=== PATIENT | female | born 1965 | race Asian ===

== ENCOUNTER 2020-09-28 14:11 | Outpatient (REF) | payer OTHER, SELFPAY ==
[2020-09-28 14:35] LABS: Hematocrit 42.8 % (37-47); Hemoglobin 14.6 g/dl (12.0-16.0); Mean Corpuscular HGB Conc 34.1 g/dl (31.0-35.0); Mean Corpuscular Hemoglobin 27.8 pg (27.0-33.0); Mean Corpuscular Volume 81.4 fL (80-98); Mean Platelet Volume 10.8 fL (9.4-12.3); Platelet Count 284 X10*3/uL (160-400); Red Blood Count 5.26 X10*6/uL (4.20-5.50); Red Cell Distribution Width 13.1 % (11.0-16.0); White Blood Count 10.9 X10*3/uL (4.8-10.8)
[2020-09-28 15:14] LABS: Estimated Average Glucose 223 mg/dL; Hemoglobin A1c % 9.4 %
[2020-09-28 15:18] LABS: Alanine Aminotransferase 18 U/L (0-31); Alkaline Phosphatase 135 U/L (39-117); Anion Gap 12 (12-20); Aspartate Amino Transferase 13 U/L (5-31); Bilirubin Total 0.4 mg/dL (0.0-1.0); Blood Urea Nitrogen 12 mg/dL (9-16); C Reactive Protein 0.56 mg/dL (< or = 0.50); Calcium 9.3 mg/dL (8.4-10.2); Carbon Dioxide 30 mmol/L (22-29); Chloride 100 mmol/L (96-108); Estimated Glomerular Filt Rate > 60; Glucose Random 240 mg/dL (60-115); Potassium 4.3 mmol/L (3.3-5.1); Sodium 138 mmol/L (135-145); Total Protein 7.1 g/dL (6.5-8.0)
[2020-09-28 15:39] LABS: Lipase 149 U/L (8-78)
== END 2020-09-28 14:12 | disposition home or self-care (01) ==
LOC: HO.LAB 14:11
PROVIDERS: PCP Family Medicine; Visit Provider Family Medicine
DX: E11.9 Type 2 diabetes mellitus without complications (principal); R10.12 Left upper quadrant pain
CPT/HCPCS: 36415; 80053; 83036; 83690; 85027; 86140

== ENCOUNTER 2020-09-29 15:23 | Outpatient (REF) | payer OTHER, SELFPAY ==
--- NOTE | ~2020-09-29 | XR_ITS ---
EXAMINATION: XR THORACOLUMBAR SPINE CLINICAL INFORMATION: Abdominal pain COMPARISON: Dorsal spine series August 2018 TECHNIQUE: 3 views of the dorsal spine FINDINGS: The vertebral alignment is normal. No intrinsic bony abnormality. The disc heights and neural foramina are well maintained. The endplates and posterior elements are normal. No fracture or subluxation. The surrounding prevertebral soft tissues are unremarkable. XR/XR thoracic spine 2V IMPRESSION: Normal exam. No change..
[2020-09-29 21:05] LABS: Amylase 31 U/L (28-100); Lactate Dehydrogenase 158 U/L (122-220)
== END 2020-09-29 15:24 | disposition home or self-care (01) ==
LOC: HO.XRAY 15:23
PROVIDERS: PCP Family Medicine; Visit Provider Nurse Practitioner
DX: R10.9 Unspecified abdominal pain (principal); M54.6 Pain in thoracic spine; R74.8 Abnormal levels of other serum enzymes
CPT/HCPCS: 36415; 72070; 82150; 83615

== ENCOUNTER 2020-10-14 11:55 | Outpatient (REF) | payer OTHER, SELFPAY ==
--- NOTE | ~2020-10-14 | CT_ITS ---
EXAMINATION: CT ABDOMEN AND PELVIS WITHOUT AND WITH CONTRAST CLINICAL INFORMATION: Abdominal pain COMPARISON: Previous abdominal ultrasound June [address] of the abdomen December 2007 TECHNIQUE: Multidetector volumetric imaging was performed of the abdomen and pelvis before and after the IV administration of 85 mL of Omnipaque 300 intravenous contrast. Sagittal and coronal reformatted images were obtained on the technologist's workstation. This CT examination was performed using dose optimization techniques as appropriate, variously including the following: *Automated exposure control *Adjustment of mA and/or kV according to patient size (this includes techniques or standardized protocols for targeted exams where dose is matched to indication/reason for exam; i.e. extremities or head) *Use of iterative reconstruction technique DLP: 2126 mGy-cm FINDINGS: LUNG BASES: There is a 2 mm peripheral or subpleural left lower lobe nodule axial image 6 series 4 that is stable. There is a 2 mm left lower lobe nodule axial image 17 series 4 that is stable. LIVER, GALLBLADDER, AND BILIARY TREE: The liver is low in attenuation suggestive of fatty infiltration. No focal liver lesion is seen. The gallbladder is been removed. There is no biliary duct dilatation. PANCREAS: Unremarkable SPLEEN: Unremarkable ADRENAL GLANDS: Unremarkable KIDNEYS AND URETERS: There is a 5 mm fatty lesion in the upper pole of the right kidney that is stable and probably represents a benign angiomyolipoma. The kidneys are otherwise unremarkable. BLADDER: Unremarkable GASTROINTESTINAL TRACT: There is mild diverticulosis of the colon. The small and large bowel are otherwise unremarkable. The appendix is unremarkable. The stomach is unremarkable. ABDOMINAL WALL: There is a large umbilical hernia containing fat. There is question of postsurgical change from right upper abdominal ventral hernia repair. LYMPH NODES: Normal VASCULAR: Unremarkable PELVIC VISCERA: Unremarkable OSSEOUS STRUCTURES: There is a 1 cm anterior subluxation of L4 with respect L5. This is new or increased from December 2017 exam. There is L4-L5 degenerative disc disease. There is facet arthritis at L4-L5. Bony structures are otherwise unremarkable. CT/CT abdomen pelvis wo/w con IMPRESSION: Fatty liver. 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 Mild diverticulosis of the colon. No evidence of diverticulitis. Large umbilical hernia containing fat. New 1 cm anterior subluxation of L4 with respect L5. There is also degenerative disc disease and facet arthritis at L4-L5.
[2020-10-14] MEDS: Barium Sulfate Oral (Berry) 450 ML ORAL.SUSP 900 ML PO (15:35)
== END 2020-10-14 11:56 | disposition home or self-care (01) ==
LOC: HO.CT 11:55
PROVIDERS: Visit Provider Nurse Practitioner
DX: R10.9 Unspecified abdominal pain (principal); M54.6 Pain in thoracic spine; R74.8 Abnormal levels of other serum enzymes
CPT/HCPCS: 74178; Q9967

== ENCOUNTER → 2020-10-21 08:43 | Outpatient (BNVA) | payer OTHER, SELFPAY | PROVIDERS: PCP Family Medicine; Visit Provider Nurse Practitioner ==

== ENCOUNTER → 2020-11-17 14:27 | Outpatient (BNVA) | payer OTHER, SELFPAY | PROVIDERS: PCP Family Medicine; Visit Provider Internal Medicine Cardiovascular Disease | DX: R07.89 Other chest pain (principal); I10 Essential (primary) hypertension | CPT/HCPCS: 93005 ==

== ENCOUNTER → 2020-11-21 07:57 | Outpatient (REF) | payer OTHER, SELFPAY ==
--- NOTE | 2020-11-21 08:01 | CA_ITS ---
Acquisition Time: 2020-11-21 08:08:29 Total Exercise Time: 00:05:14 Test Indications: Chest Pain Medications: ASA ATORVASTATIN BUPROPION DULAGLUTIDE HCTZ INSULIN Protocol: JENSEN Max HR: 150 BPM 91% of Pred: 164 BPM Max BP: 150/080 mmHG Max Work Load: 7.0 METS Exercise stress test using Jensen protocol, total of 5 min 14 sec. Tolerated well, denies any anginal sx. EKG with no arrhythmias, no ischemic changes seen during exercise or in recovery. Normotensive response to exercise. Test reviewed with Dr. Marin. Referred By: Mikey Marin Overread By: Socorro Koehler NP
== END ==
LOC: HO.CARD 07:57
PROVIDERS: Visit Provider Internal Medicine Cardiovascular Disease
DX: R07.89 Other chest pain (principal)
CPT/HCPCS: 93016; 93017; 93018

== ENCOUNTER → 2020-11-29 14:09 | Outpatient (REF) | payer OTHER, SELFPAY | LOC: HO.SL 14:09 | PROVIDERS: PCP Family Medicine; Visit Provider Internal Medicine Cardiovascular Disease | DX: G47.10 Hypersomnia, unspecified (principal); R06.83 Snoring; I51.7 Cardiomegaly; G47.33 Obstructive sleep apnea (adult) (pediatric) | CPT/HCPCS: 95806 ==

== ENCOUNTER → 2021-01-04 09:16 | Outpatient (REF) | payer OTHER, SELFPAY ==
--- NOTE | 2021-01-04 08:49 | CA_ITS ---
Transthoracic Echocardiogram Patient (Last, First, Middle): Marilyn Medina A Gender: Female Date of : 1965 Age: 55 Procedure Date: 01/04/2021 Procedure Type: Transthoracic Echocardiogram Location: OP Height: 167.64 cm Weight: 128.82 kg BSA: 2.32 m2 Heart Rate: bpm BP: 138 / 60 mmHg Ms Sql Dba: Referring MD: Mikey Marin MD Symptoms: I51.7 - Cardiomegaly Study Quality: Good ECG Rhythm: Sinus Conclusions: - The left ventricular systolic function is normal. The visually estimated ejection fraction is between 65-70%. - There is mild mitral annular calcification. Findings Left Ventricle Normal left ventricular cavity size. There is mildly increased left ventricular wall thickness. The left ventricular systolic function is normal. The visually estimated ejection fraction is between 65-70%. There is no evidence of regional wall motion abnormalities. Diastolic function is normal for age. Right Ventricle Normal right ventricular cavity size and systolic function. Atria Both atria are normal in size. Aortic Valve There is a normal trileaflet aortic valve. There is no aortic valve stenosis. There is no aortic valve regurgitation. Mitral Valve There is mild mitral annular calcification. There is trace mitral valve regurgitation. There is no mitral valve stenosis. Pulmonic Valve The pulmonic valve was not well visualized. Tricuspid Valve Normal tricuspid valve structure. There is trace tricuspid valve regurgitation. The pulmonary artery systolic pressure is normal. Great Vessels Top normal ascending aortic size at 3.7 cm. Venous The inferior vena cava is normal in size and collapses less than 50% with inspiration. Pericardium/Pleural There is no evidence of pericardial effusion. Prior Study Comparison Changes noted compared to prior study dated: 07/21/2012. Right ventricle enlargement reported in prior study, but normal size in current. Measurements 2D Linear Measurements IVSd: 1.47 0.6-0.9/0.6-1.0 cm LVIDd: 4.63 3.9-5.3/4.2-5.9 cm LVIDd Index: 2.00 2.4-3.2/2.2-3.1 cm/m2 LVIDs: 2.72 2.0-3.6 cm LVPWd: 1.43 0.7-1.1 cm Ao Root: 3.70 2.1-3.5 cm LA Diam: 4.40 2.7-3.8/3.0-4.0 cm LAIDs Index: 1.90 1.5-2.3 cm/m2 LV Mass: 340.81 67-162/88-224 g LV Mass Index: 146.90 43-95/49-115 g/m2 LVOT Diam: 2.10 3.0+(-)1.3 cm Mitral Valve MV Pk E: 0.75 MV PK A: 1.24 MV Decel Time: 370.00 E/A: 0.60 E'Lateral: 12.30 E'Medial: 7.18 E/E' Med: 10.50 E/E' Lat: 6.10 PHT: 108.00 MVA PHT: 2.04 Decel [place]: 2.04 Aortic Valve AoV Pk Frank: 2.21 AoV Mn Frank: 1.36 AoV VTI: 0.47 AoV Pk Grad: 20.00 Aov Mn Grad: 9.00 MIGUEL ANGEL Cont.VTI: 1.73 LVOT LVOT Pk Frank: 0.93 LVOT Mn Frank: 0.62 LVOT VTI: 0.24 LVOT Pk Grad: 3.00 LVOT Mn Grad: 2.00 LVOT Diam: 2.10 LVOT Area: 3.46 Diastolic Function MV Pk E: 0.75 MV Pk A: 1.24 E/A: 0.60 E'Medial: 7.18 E/E' Med: 10.50 E' Laterial: 12.30 E/E' Lat: 6.10 Tricuspid Valve TR Pk Frank: 1.96 TR Pk Grad: 15.00 RA Press: 8.00 RVSP: 23.00 Great Vessels Aorta Ao Root-2D: 3.70 2.0-3.7 cm Ao Asc: 3.70 2.1-3.4 cm Pulmonary Valve PV Pk Frank: 1.00 Peak PV Grad: 4.00 Updated in Other Vendor System with Status of Final Luis Manuel Guerra MD electronically signed on 01/05/2021 11:33:59 AM with status of Final
== END ==
LOC: HO.CARD 09:16
PROVIDERS: Visit Provider Internal Medicine Cardiovascular Disease
DX: I51.7 Cardiomegaly (principal)
CPT/HCPCS: 93306

== ENCOUNTER → 2021-01-09 15:05 | Outpatient (BNVA) | payer OTHER, SELFPAY | PROVIDERS: PCP Family Medicine; Visit Provider Internal Medicine Cardiovascular Disease | DX: Z13.89 Encounter for screening for other disorder (principal) ==

== ENCOUNTER 2021-04-28 23:00 | Emergency (ER) | payer OTHER, SELFPAY ==
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
[2021-04-28 23:21] VITALS: BP 154/85; PULSE 108; RESP 18; TEMP 36.1; O2SAT 96; BMI 44.4
[2021-04-28] MEDS: Ibuprofen 600 MG TABLET PO (23:48)
== END 2021-04-29 00:48 | disposition home or self-care (01) ==
PROVIDERS: Emergency Provider Emergency Medicine; PCP Family Medicine
DX: S06.0X0A Concussion without loss of consciousness, initial encounter (principal); S00.212A Abrasion of left eyelid and periocular area, initial encounter; E11.9 Type 2 diabetes mellitus without complications; I10 Essential (primary) hypertension; Y04.2XXA Assault by strike against or bumped into by another person, initial encounter; Y93.9 Activity, unspecified; Y92.239 Unspecified place in hospital as the place of occurrence of the external cause; Y99.0 Civilian activity done for income or pay
CPT/HCPCS: 70140; 90471; 90715; 99283; 99284

== ENCOUNTER → 2021-05-02 13:18 | Outpatient (BNVA) | payer OTHER, SELFPAY | PROVIDERS: PCP Family Medicine; Visit Provider Internal Medicine | DX: Z13.89 Encounter for screening for other disorder (principal) | CPT/HCPCS: 99202 ==

== ENCOUNTER → 2021-05-09 10:56 | Outpatient (BNVA) | payer OTHER, SELFPAY | PROVIDERS: PCP Family Medicine; Visit Provider Physician Assistant Medical | DX: Z13.89 Encounter for screening for other disorder (principal) | CPT/HCPCS: 99213 ==

== ENCOUNTER 2021-07-19 08:00 | Outpatient (REF) | payer OTHER, SELFPAY ==
[2021-07-19 09:03] LABS: Anion Gap 11 (12-20); Blood Urea Nitrogen 12 mg/dL (9-16); Calcium 9.8 mg/dL (8.4-10.2); Carbon Dioxide 29 mmol/L (22-29); Chloride 102 mmol/L (96-108); Cholesterol 135 mg/dL; Estimated Glomerular Filt Rate > 60; Glucose Random 221 mg/dL (60-115); HDL Cholesterol 31 mg/dL; Potassium 4.1 mmol/L (3.3-5.1); Sodium 138 mmol/L (135-145); Triglycerides 426 mg/dL
[2021-07-19 09:09] LABS: Estimated Average Glucose 177 mg/dL; Hemoglobin A1c % 7.8 %
== END 2021-07-19 08:01 | disposition home or self-care (01) ==
LOC: HO.LAB 08:00
PROVIDERS: PCP Family Medicine; Visit Provider Family Medicine
DX: E11.9 Type 2 diabetes mellitus without complications (principal)
CPT/HCPCS: 36415; 80048; 80061; 83036

== ENCOUNTER 2021-10-20 14:21 | Outpatient (REF) | payer OTHER, SELFPAY ==
--- NOTE | ~2021-10-20 | MM_ITS ---
EXAMINATION: MM SCREENING DIGITAL BREAST TOMOSYNTHESIS, BILATERAL CLINICAL INFORMATION: Screening. Asymptomatic. The lifetime risk of breast cancer based on the Tyrer-Cuzick Model is 20%. COMPARISON: Mammography: 08/04/2019, 07/10/2018, 04/25/2016 TECHNIQUE: Digital breast tomosynthesis is performed in both the craniocaudal and mediolateral oblique views along with computer-aided detection (CAD). Synthesized 2D images are generated from the tomosynthesis. FINDINGS: There are scattered areas of fibroglandular density (ACR BI-RADS breast composition Category b). There are no significant masses, abnormal calcifications, or other abnormalities. Parenchymal pattern is similar to prior studies. There is no developing density or architectural abnormality. The axilla and skin contours are unremarkable. No significant changes. MM/MM tomosynthesis screening BI IMPRESSION: No mammographic evidence of malignancy. ASSESSMENT: BI-RADS 1: Negative RECOMMENDATION: Routine annual mammography screening. This patient's information was entered into a reminder system with a target due date for their next mammogram.
== END 2021-10-20 14:22 | disposition home or self-care (01) ==
LOC: HO.MAMMO 14:21
PROVIDERS: PCP Family Medicine; Visit Provider Family Medicine
DX: Z12.31 Encounter for screening mammogram for malignant neoplasm of breast (principal)
CPT/HCPCS: 77063; 77067

== ENCOUNTER 2021-11-30 07:09 | Outpatient (REF) | payer OTHER, SELFPAY ==
[2021-11-30 08:54] LABS: Estimated Average Glucose 169 mg/dL; Hemoglobin A1c % 7.5 %
== END 2021-11-30 07:10 | disposition home or self-care (01) ==
LOC: HO.LAB 07:09
PROVIDERS: PCP Family Medicine; Visit Provider Family Medicine
DX: E11.65 Type 2 diabetes mellitus with hyperglycemia (principal)
CPT/HCPCS: 36415; 83036

== ENCOUNTER → 2022-01-08 13:22 | Outpatient (BNVA) | payer OTHER, SELFPAY | PROVIDERS: PCP Family Medicine; Visit Provider Internal Medicine Cardiovascular Disease | DX: I10 Essential (primary) hypertension (principal) | CPT/HCPCS: 93005 ==

== ENCOUNTER 2022-04-30 08:05 | Outpatient (REF) | payer OTHER, SELFPAY ==
[2022-04-30 09:11] LABS: Estimated Average Glucose 143 mg/dL; Hemoglobin A1c % 6.6 %
[2022-04-30 09:31] LABS: Anion Gap 14 (12-20); Blood Urea Nitrogen 15 mg/dL (9-16); Calcium 9.4 mg/dL (8.4-10.2); Carbon Dioxide 25 mmol/L (22-29); Chloride 104 mmol/L (96-108); Cholesterol 110 mg/dL; Estimated Glomerular Filt Rate > 60; Glucose Random 155 mg/dL (60-115); HDL Cholesterol 37 mg/dL; LDL Cholesterol Calculated 48 mg/dl; Potassium 4.1 mmol/L (3.3-5.1); Sodium 139 mmol/L (135-145); Triglycerides 129 mg/dL
== END 2022-04-30 08:06 | disposition home or self-care (01) ==
LOC: HO.LAB 08:05
PROVIDERS: PCP Family Medicine; Visit Provider Family Medicine
DX: I10 Essential (primary) hypertension (principal); E11.65 Type 2 diabetes mellitus with hyperglycemia
CPT/HCPCS: 36415; 80048; 80061; 83036

== ENCOUNTER 2022-10-10 07:56 | Outpatient (REF) | payer OTHER, SELFPAY ==
[2022-10-10 08:06] LABS: MANUAL DIFF FLAG NO
[2022-10-10 08:38] LABS: Basophils Absolute Auto 0.1 X10*3/uL (0.0-0.2); Basophils Percent Auto 0.5 % (0-2); Eosinophils Absolute Auto 0.2 X10*3/uL (0.0-0.4); Eosinophils Percent Auto 1.4 % (0-4); Hematocrit 45.4 % (37.0-47.0); Hemoglobin 15.3 g/dl (12.0-16.0); Imm Gran Abs Auto 0.05 X10*3/uL (0.00-0.03); Imm Gran Pct Auto 0.4 % (0.0-0.4); Lymphocytes Absolute Auto 2.6 X10*3/uL (1.2-4.9); Lymphocytes Percent Auto 21.6 % (20-40); Mean Corpuscular HGB Conc 33.7 g/dl (31.0-35.0); Mean Corpuscular Hemoglobin 27.9 pg (27.0-33.0); Mean Corpuscular Volume 82.8 fL (80.0-98.0); Mean Platelet Volume 11.2 fL (9.4-12.3); Monocytes Absolute Auto 0.6 X10*3/uL (0.1-1.2); Neutrophils Absolute Auto 8.5 x10*3/uL (2.0-8.3); Neutrophils Percent Auto 71.1 % (45-73); Platelet Count 282 X10*3/uL (160-400); Red Blood Count 5.48 X10*6/uL (4.20-5.50); Red Cell Distribution Width 13.4 % (11.0-16.0)
[2022-10-10 08:47] LABS: Estimated Average Glucose 157 mg/dL; Hemoglobin A1c % 7.1 %
[2022-10-10 09:10] LABS: Anion Gap 14 (12-20); Blood Urea Nitrogen 14 mg/dL (9-16); Calcium 9.6 mg/dL (8.4-10.2); Carbon Dioxide 27 mmol/L (22-29); Chloride 102 mmol/L (96-108); Cholesterol 207 mg/dL; Estimated Glomerular Filt Rate > 60; Glucose Random 164 mg/dL (60-115); HDL Cholesterol 40 mg/dL; LDL Cholesterol Calculated 102 mg/dl; Potassium 4.4 mmol/L (3.3-5.1); Sodium 139 mmol/L (135-145); Triglycerides 327 mg/dL
== END 2022-10-10 07:57 | disposition home or self-care (01) ==
LOC: HO.LAB 07:56
PROVIDERS: PCP Family Medicine; Visit Provider Nurse Practitioner Family
DX: Z00.00 Encounter for general adult medical examination without abnormal findings (principal); I10 Essential (primary) hypertension; E11.9 Type 2 diabetes mellitus without complications
CPT/HCPCS: 36415; 80048; 80061; 83036; 85025

== ENCOUNTER 2022-10-27 07:45 | Outpatient (REF) | payer OTHER, SELFPAY ==
[2022-10-27 08:03] LABS: MANUAL DIFF FLAG NO
[2022-10-27 08:46] LABS: Basophils Absolute Auto 0.1 X10*3/uL (0.0-0.2); Basophils Percent Auto 0.5 % (0-2); Eosinophils Absolute Auto 0.2 X10*3/uL (0.0-0.4); Eosinophils Percent Auto 1.1 % (0-4); Hematocrit 43.1 % (37.0-47.0); Hemoglobin 14.7 g/dl (12.0-16.0); Imm Gran Abs Auto 0.05 X10*3/uL (0.00-0.03); Imm Gran Pct Auto 0.4 % (0.0-0.4); Lymphocytes Absolute Auto 2.5 X10*3/uL (1.2-4.9); Lymphocytes Percent Auto 18.4 % (20-40); Mean Corpuscular HGB Conc 34.1 g/dl (31.0-35.0); Mean Corpuscular Volume 82.1 fL (80.0-98.0); Mean Platelet Volume 11.5 fL (9.4-12.3); Monocytes Absolute Auto 0.7 X10*3/uL (0.1-1.2); Monocytes Percent Auto 5.3 % (2-11); Neutrophils Percent Auto 74.3 % (45-73); Platelet Count 274 X10*3/uL (160-400); Red Blood Count 5.25 X10*6/uL (4.20-5.50); Red Cell Distribution Width 13.2 % (11.0-16.0); White Blood Count 13.5 X10*3/uL (4.8-10.8)
[2022-10-27 08:54] LABS: Appearance Urine Cloudy; Color Urine Yellow; Glucose Urine UA Negative (Negative); Leukocyte Esterase Urine Moderate (2+) (Negative); Nitrite Urine Negative (Negative); PH 5.5 (5.0-9.0); Specific Gravity - Urine 1.025 (1.005-1.025); UMIC TRIGGER UACC YES; Urine Blood Negative (Negative); Urine Ketones Trace mg/dL (Negative); Urine Protein Negative (Neg-Trace)
[2022-10-27 09:00] LABS: Bacteria Urine Trace (None Seen); Hyaline Casts Urine 0-2 /LPF (0-2); UACC Culture Trigger YES; WBC Urine >50 /HPF (0-5)
[2022-10-27 09:24] LABS: Erythrocyte Sedimentation Rate 7 MM/HR (0-20)
[2022-10-27 09:26] LABS: C Reactive Protein 0.32 mg/dL (< or = 0.50)
[2022-10-27 09:53] LABS: Vitamin B12 908 pg/mL (200-900)
== END 2022-10-27 07:46 | disposition home or self-care (01) ==
LOC: HO.LAB 07:45
PROVIDERS: PCP Family Medicine; Visit Provider Family Medicine
DX: R61 Generalized hyperhidrosis (principal); G60.9 Hereditary and idiopathic neuropathy, unspecified; R82.90 Unspecified abnormal findings in urine
CPT/HCPCS: 36415; 81001; 82607; 84443; 85025; 85652; 86140; 87086

== ENCOUNTER 2022-11-10 07:56 | Outpatient (REF) | payer OTHER, SELFPAY ==
--- NOTE | ~2022-11-10 | MM_ITS ---
EXAMINATION: MM SCREENING DIGITAL BREAST TOMOSYNTHESIS, BILATERAL CLINICAL INFORMATION: Screening. Asymptomatic. Family history breast cancer, mother. The lifetime risk of breast cancer based on the Tyrer-Cuzick Model is 17%. COMPARISON: Mammography: 10/20/2021, 08/04/2019, 07/10/2018 TECHNIQUE: Digital breast tomosynthesis is performed in both the craniocaudal and mediolateral oblique views along with computer-aided detection (CAD). Synthesized 2D images are generated from the tomosynthesis. Additional right MLO view is provided. FINDINGS: There are scattered areas of fibroglandular density (ACR BI-RADS breast composition Category b). There are no significant masses, abnormal calcifications, or other abnormalities. Background stromal and fibroglandular densities are similar to prior exams. Incidental low left axillary tail nodes again noted. No developing density or interval architectural abnormality. Again, there are scattered bilateral benign round, rim, and dermal calcifications. MM/MM tomosynthesis screening BI IMPRESSION: No mammographic evidence of malignancy. ASSESSMENT: BI-RADS 2: Benign RECOMMENDATION: Routine annual mammography screening. This patient's information was entered into a reminder system with a target due date for their next mammogram.
== END 2022-11-10 07:57 | disposition home or self-care (01) ==
LOC: HO.MAMMO 07:56
PROVIDERS: PCP Family Medicine; Visit Provider Family Medicine
DX: Z12.31 Encounter for screening mammogram for malignant neoplasm of breast (principal)
CPT/HCPCS: 77063; 77067

== ENCOUNTER 2023-04-03 07:31 | Outpatient (REF) | payer OTHER, SELFPAY ==
[2023-04-03 08:16] LABS: Hematocrit 43.8 % (37.0-47.0); Hemoglobin 14.8 g/dl (12.0-16.0); Mean Corpuscular HGB Conc 33.8 g/dl (31.0-35.0); Mean Corpuscular Hemoglobin 28.6 pg (27.0-33.0); Mean Corpuscular Volume 84.7 fL (80.0-98.0); Mean Platelet Volume 11.2 fL (9.4-12.3); Platelet Count 293 X10*3/uL (160-400); Red Blood Count 5.17 X10*6/uL (4.20-5.50); Red Cell Distribution Width 13.3 % (11.0-16.0); White Blood Count 12.7 X10*3/uL (4.8-10.8)
[2023-04-03 08:20] LABS: Appearance Urine Clear; Color Urine Yellow; Glucose Urine UA Negative (Negative); Leukocyte Esterase Urine Moderate (2+) (Negative); Nitrite Urine Negative (Negative); PH 5.5 (5.0-9.0); Specific Gravity - Urine 1.015 (1.005-1.025); UMIC TRIGGER UACC YES; Urine Blood Negative (Negative); Urine Ketones Trace mg/dL (Negative); Urine Protein Negative (Neg-Trace)
[2023-04-03 08:20] LABS: Estimated Average Glucose 194 mg/dL; Hemoglobin A1c % 8.4 % (<6.0)
[2023-04-03 08:22] LABS: Bacteria Urine None Seen (None Seen); Hyaline Casts Urine 0-2 /LPF (0-2); RBC Urine 0-2 /HPF (0-2); UACC Culture Trigger YES; WBC Urine 21-50 /HPF (0-5)
[2023-04-03 08:41] LABS: Anion Gap 11 (12-20); Blood Urea Nitrogen 13 mg/dL (9-16); Calcium 9.5 mg/dL (8.4-10.2); Carbon Dioxide 27 mmol/L (22-29); Chloride 105 mmol/L (96-108); Cholesterol 133 mg/dL (<200); Estimated Glomerular Filt Rate > 60; Glucose Random 181 mg/dL (60-115); HDL Cholesterol 43 mg/dL (>40); LDL Cholesterol Calculated 58 mg/dL (<100); Potassium 4.1 mmol/L (3.3-5.1); Sodium 139 mmol/L (135-145); Triglycerides 162 mg/dL (<150)
== END 2023-04-03 07:32 | disposition home or self-care (01) ==
LOC: HO.LAB 07:31
PROVIDERS: PCP Family Medicine; Visit Provider Family Medicine
DX: Z00.00 Encounter for general adult medical examination without abnormal findings (principal); R61 Generalized hyperhidrosis; R82.90 Unspecified abnormal findings in urine
CPT/HCPCS: 36415; 80048; 80061; 81001; 83036; 85027; 87086

== ENCOUNTER 2023-11-14 07:45 | Outpatient (REF) | payer OTHER, SELFPAY ==
--- NOTE | ~2023-11-14 | MM_ITS ---
EXAMINATION: MM SCREENING DIGITAL BREAST TOMOSYNTHESIS, BILATERAL CLINICAL INFORMATION: Screening. Asymptomatic. Family history breast cancer in mother. COMPARISON: Mammography: 11/10/2022, 10/20/2021, 08/04/2019, 07/10/2018 TECHNIQUE: Digital breast tomosynthesis is performed in both the craniocaudal and mediolateral oblique views along with computer-aided detection (CAD). Synthesized 2D images are generated from the tomosynthesis. Added full-field right MLO view was included. FINDINGS: The breasts are almost entirely fatty (ACR BI-RADS breast composition Category a). There are scattered bilateral dermal and benign type calcifications, unchanged. Stable lymph nodes in the axillary tails of both breasts. There are no suspicious masses, suspicious grouped calcifications, or areas of architectural distortion in either breast. The parenchymal pattern is stable from prior exams. No skin or axillary abnormalities. MM/MM tomosynthesis screening BI IMPRESSION: No mammographic evidence of malignancy. ASSESSMENT: BI-RADS BI-RADS 2 - Benign Findings RECOMMENDATION: Routine annual mammography screening. 1 year F/U This examination should not preclude the clinical evaluation of a suspicious palpable abnormality. This patient's information was entered into a reminder system with a target due date for their next mammogram.
== END 2023-11-14 07:46 | disposition home or self-care (01) ==
LOC: HO.MAMMO 07:45
PROVIDERS: PCP Family Medicine; Visit Provider Family Medicine
DX: Z12.31 Encounter for screening mammogram for malignant neoplasm of breast (principal)
CPT/HCPCS: 77063; 77067

== ENCOUNTER → 2023-11-14 07:45 | Outpatient (BNV) | payer OTHER, SELFPAY | PROVIDERS: PCP Family Medicine; Visit Provider Radiology Diagnostic Radiology | DX: Z12.31 Encounter for screening mammogram for malignant neoplasm of breast (principal) | CPT/HCPCS: 77063; 77067 ==

== ENCOUNTER 2023-12-25 07:41 | Outpatient (REF) | payer OTHER, SELFPAY ==
[2023-12-25 08:28] LABS: Estimated Average Glucose 160 mg/dL; Hemoglobin A1c % 7.2 % (<6.0)
[2023-12-25 09:02] LABS: Alanine Aminotransferase 19 U/L (0-31); Albumin Level 4.1 g/dL (3.5-5.0); Alkaline Phosphatase 109 U/L (39-117); Anion Gap 12 (12-20); Aspartate Amino Transferase 16 U/L (5-31); Bilirubin Total 0.4 mg/dL (0.0-1.0); Blood Urea Nitrogen 14 mg/dL (9-16); Calcium 9.7 mg/dL (8.4-10.2); Carbon Dioxide 27 mmol/L (22-29); Chloride 105 mmol/L (96-108); Cholesterol 113 mg/dL (<200); Estimated Glomerular Filt Rate > 60; Glucose Random 159 mg/dL (60-115); HDL Cholesterol 37 mg/dL (>40); LDL Cholesterol Calculated 39 mg/dL (<100); Potassium 3.8 mmol/L (3.3-5.1); Sodium 140 mmol/L (135-145); Total Protein 7.4 g/dL (6.5-8.0); Triglycerides 187 mg/dL (<150)
[2023-12-25 09:21] LABS: Creatinine Urine 163.88 mg/dL; Microalbum/Creatinine Ratio Ur 7.3 ug/mg cr (<30)
== END 2023-12-25 07:42 | disposition home or self-care (01) ==
LOC: HO.LAB 07:41
PROVIDERS: PCP Family Medicine; Visit Provider Family Medicine
DX: E11.65 Type 2 diabetes mellitus with hyperglycemia (principal)
CPT/HCPCS: 36415; 80053; 80061; 82043; 82570; 83036

== ENCOUNTER 2024-01-20 08:51 | Outpatient (AMB) | payer OTHER, SELFPAY ==
--- NOTE | 2024-01-20 08:57 | MHC.OFFVIS ---
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 Since I last saw her she has been participate in more regular physical activity at least 4 to 5 times a week. No exertional chest pain or shortness of breath. Blood pressures been very well controlled at home with systolic blood pressure in the 120s. Hemoglobin A1c 7.2. Last LDL at 39. She denies any cardiac symptoms at this point in time. [facility] Medical History HTN (hypertension) Enlarged RV (right ventricle) Hyperlipidemia Diabetes mellitus HTN (hypertension) Surgical History Hx of colonoscopy Hx of hernia repair Hx of cholecystectomy Family History Father Diabetes HTN (hypertension) Bladder cancer Mother Diabetes HTN (hypertension) Cancer Social History Alcohol intake: current Alcohol intake frequency: does not drink Review of Systems Const Denies chills, Denies fatigue, Denies fever(s), Denies frequent falls, Denies weakness, Denies weight gain and Denies weight loss ENT Denies dizziness Card Denies chest pain, Denies leg edema, Denies lightheadedness, Denies palpitations, Denies dyspnea, Denies dyspnea on exertion, Denies orthopnea and Denies other (loss of consciousness) Resp Denies cough, Denies dyspnea and Denies dyspnea on exertion GI Denies hematochezia and Denies change in stool character Musc Denies abnormal gait, Denies muscle weakness, Denies numbness, Denies radiating pain into limb and Denies tingling Neuro Denies abnormal gait, Denies dizziness, Denies frequent falls, Denies numbness, Denies tingling and Denies weakness Endo Denies fatigue and Denies palpitations Physical Exam Vital Signs: Last Vital Signs BP 136/74 01/20/24 08:59 BMI result Body Mass Index 43.7 Const General: cooperative, comfortable, no acute distress, alert, awake and well groomed Nutritional Appearance: obese Orientation/consciousness: patient oriented x3 Limitations: no limitations HEENT Head: Yes normocephalic and Yes atraumatic Neck Neck: Yes trachea midline, Yes supple and Yes no JVD Chest Chest palpation & inspection: normal inspection of the chest Resp Effort & Inspection: normal respiratory effort Auscultation: clear to auscultation bilaterally Cardio Jugular venous distension: no JVD Palpation: normal PMI Rate: regular rate Rhythm: regular rhythm Heart sounds: S1 normal heart sound present and S2 normal heart sound present GI Auscultation: normal bowel sounds Skin General skin exam: no rashes or lesions noted Neuro General: patient oriented x3 and no focal motor deficits Extrem General: Yes no clubbing, cyanosis or edema Psych Appearance: grossly normal Office Procedures EKG Details: EKG shows normal sinus rhythm with poor R-wave progression due to lead placement body habitus. Otherwise normal EKG [id number], Complete Assessment & Plan Assessment & Plan (1) HTN (hypertension): Code(s): I10 - Essential (primary) hypertension Category: Medical Plan: Hypertension which is currently extremely well optimized on current therapy. Importance of good blood pressure control was discussed. She understands as well. Continue aggressive vascular risk factor modification. She is participating more aggressive diabetes control. Also LDL is extremely well optimized. She also participate in regular physical activity and this was encouraged and applauded. She is advised to continue to participate in more intense physical activity and also participate in weight loss program. She understands management very well. Will follow up in the clinic in 1 year's time, sooner p.r.n.. Thank you for allowing me to partake in the care Coding Level of Care Code Est Pt Level 3 (83283) Diagnoses HTN (hypertension) I10 CPT Codes EKG - CPT: 95845-[id number], Complete ([id number])
[2024-01-20 08:59] VITALS: BP 136/74; BMI 43.7
== END 2024-01-20 09:21 | disposition home or self-care (01) ==
PROVIDERS: PCP Family Medicine; Visit Provider Internal Medicine Cardiovascular Disease
DX: I10 Essential (primary) hypertension (principal)
CPT/HCPCS: 93010; 99213

== ENCOUNTER → 2024-01-20 08:51 | Outpatient (BNVA) | payer OTHER, SELFPAY | PROVIDERS: PCP Family Medicine; Visit Provider Internal Medicine Cardiovascular Disease | DX: I10 Essential (primary) hypertension (principal) | CPT/HCPCS: 93005 ==

== ENCOUNTER 2024-03-12 10:48 | Outpatient (REF) | payer OTHER, SELFPAY ==
--- NOTE | ~2024-03-12 | US_ITS ---
EXAMINATION: US PELVIS CLINICAL INFORMATION: Family history of unspecified malignant neoplasm. Evaluate for uterine abnormalities. Postmenopausal. COMPARISON: CT abdomen/pelvis 10/14/2020. TECHNIQUE: Ultrasound of the pelvis is performed using both transabdominal and transvaginal transducers along with Doppler. Transvaginal imaging is performed due to inadequate visualization transabdominally. FINDINGS: Limited evaluation secondary to body habitus and shadowing from overlying bowel gas. Anteverted uterus with normal morphology measuring 5.9 x 3.3 x 3.9 cm. Equivocal minimal heterogeneity of the myometrium. No discrete focal mass. Homogeneous endometrial stripe measuring 0.1 cm in thickness. No focal abnormality. Heterogeneous and somewhat prominent cervix with a few simple cysts and trace amount of free fluid in the endocervical canal. The right ovary is not seen. The left ovary is normal in morphology with preserved flow on color Doppler at the moment of this examination measuring 2.2 x 1.3 x 1.5 cm, 2.2 mL. There is single 0.2 cm hyperechoic focus in the left ovary, most likely a calcification. No adnexal mass. No free fluid. US/US pelvic and transvaginal IMPRESSION: Limited evaluation secondary to body habitus and shadowing from overlying bowel gas. The right ovary is not visualized. 1. Heterogeneous and somewhat prominent cervix with a few simple cysts and trace amount of free fluid in the endocervical canal. Recommend correlation with direct visualization and Pap smear. 2. Equivocal minimal heterogeneity of the myometrium that could potentially be seen with adenomyosis, currently clinically. Further evaluation with pelvic MRI as clinically warranted. Electronically signed by: Anika Page MD 03/12/2024 11:47 AM EDT
== END 2024-03-12 10:49 | disposition home or self-care (01) ==
LOC: HO.US 10:48
PROVIDERS: PCP Family Medicine; Visit Provider Family Medicine
DX: Z12.89 Encounter for screening for malignant neoplasm of other sites (principal); Z80.49 Family history of malignant neoplasm of other genital organs
CPT/HCPCS: 76830; 76856

== ENCOUNTER 2024-03-31 07:46 | Outpatient (REF) | payer OTHER, SELFPAY ==
[2024-03-31 08:55] LABS: Estimated Average Glucose 177 mg/dL; Hemoglobin A1c % 7.8 % (<6.0)
== END 2024-03-31 07:47 | disposition home or self-care (01) ==
LOC: HO.LAB 07:46
PROVIDERS: PCP Family Medicine; Visit Provider Family Medicine
DX: E11.65 Type 2 diabetes mellitus with hyperglycemia (principal)
CPT/HCPCS: 36415; 83036

== ENCOUNTER 2024-05-21 07:34 | Outpatient (AMB) | payer OTHER, SELFPAY ==
[2024-05-21 07:44] VITALS: BP 114/62; BMI 42.6
--- NOTE | 2024-05-21 07:44 | A.OFFVIS_ITS ---
Vital Signs 05/21/24 07:44 Height 5 ft 6 in Weight 264 lb BMI 42.6 BP 114/62 Intake Visit Reasons: US findings/Referral Intake Note: pt c/o cramping frequently since beginning of year, no discharge. Last period 2019. Paps at PCP normal hx per pt Allergies lisinopril [LISINOPRIL] Allergy (Unknown, Verified 05/21/24 07:44) COUGH losartan [From COZAAR] Allergy (Unknown, Verified 05/21/24 07:44) UNKNOWN HPI Comments Details: New patient consult today, referred by her primary care due to pelvic cramping and ultrasound findings. Additionally she has dyspareunia with deep penetration. LMP 2019 noted cramping at times when cycle was due and has increased over the years. She denies any discharge, odors, bowel changes, vaginal bleeding or urinary symptoms. She reports her Pap smear is [id number] copies available hand today. [facility] Medical History HTN (hypertension) Enlarged RV (right ventricle) Hyperlipidemia Diabetes mellitus HTN (hypertension) Surgical History Hx of colonoscopy Hx of hernia repair Hx of cholecystectomy Family History (Updated 05/21/24 @ 07:50 by NIALL Tellez) Father Diabetes HTN (hypertension) Bladder cancer Mother Diabetes HTN (hypertension) Cancer History of breast cancer Social History Alcohol intake: current Alcohol intake frequency: does not drink Female Reproductive History Menstrual Menopause type: natural Total pregnancies: 0 Review of Systems Const All systems reviewed & are unremarkable except as noted in HPI and below Physical Exam Vital Signs: Last Vital Signs BP 114/62 05/21/24 07:44 BMI result Body Mass Index 42.6 Const General: cooperative, healthy appearing and no acute distress Orientation/consciousness: patient oriented x3 GI Inspection: Yes normal to inspection Palpation (GI): Soft to palpation and Other GI palpation findings present (Nontender) Rectal Exam - Female: visual inspection normal General: Yes bladder normal to palpation External Female Exam: normal appearance of the urethra Speculum Exam - Vagina: normal appearance of the vagina, normal palpation, normal vaginal discharge and vagina atrophic (Moderate atrophy) Speculum Exam - Cervix: normal appearance of the cervix, normal palpation and Other cervical findings present (Atrophic changes) Bimanual exam- vagina & uterus: normal bimanual exam, normal palpation, uterine size normal, bladder normal to palpation, normal palpation, uterine shape normal and non-tender Bimanual Exam- Adnexa, other: normal adnexae Neuro General: patient oriented x3 Results AMB Urinalysis, Automated UA Leukoctes 2 Martha/uL Last Edit by NIALL Tellez on 05/21/24 08:34 UA Nitrite Negative Last Edit by NIALL Tellez on 05/21/24 08:34 UA Urobilinogen 0 mg/dL Last Edit by NIALL Tellez on 05/21/24 08:3 4 UA Protein 0 mg/dL Last Edit by NIALL Tellez on 05/21/24 08:34 UA pH 6.0 Last Edit by NIALL Tellez on 05/21/24 08:34 UA Blood 3 Darnell/uL Last Edit by NIALL Tellez on 05/21/24 08:34 UA Specific [place] 1.010 Last Edit by NIALL Tellez on 05/21/24 08:34 UA Ketone Negative Last Edit by NIALL Tellez on 05/21/24 08:34 UA Bilirubin 0 mg/dL Last Edit by NIALL Tellez on 05/21/24 08:34 UA Glucose 0 mg/dL Last Edit by NIALL Tellez on 05/21/24 08:34 Results Reviewed Results Reviewed: [address] [address] Ultrasound Report Signed Patient: Marilyn Medina MR#: [id number] : 1965 Acct:[id number] Age/Sex: 58 / F ADM Date: 03/12/24 Loc: .[place] Attending Dr: Yolanda Jaime MD Ordering Physician: Yolanda Jaime MD Date of Service: 03/12/24 Procedure(s): US pelvic and transvaginal Accession Number(s): [id number] cc: Yolanda Jaime MD~ EXAMINATION: US PELVIS CLINICAL INFORMATION: Family history of unspecified malignant neoplasm. Evaluate for uterine abnormalities. Postmenopausal. COMPARISON: CT abdomen/pelvis 10/14/2020. TECHNIQUE: Ultrasound of the pelvis is performed using both transabdominal and transvaginal transducers along with Doppler. Transvaginal imaging is performed due to inadequate visualization transabdominally. FINDINGS: Limited evaluation secondary to body habitus and shadowing from overlying bowel gas. Anteverted uterus with normal morphology measuring 5.9 x 3.3 x 3.9 cm. Equivocal minimal heterogen Assessment & Plan Assessment & Plan (1) Vaginal atrophy: Code(s): N95.2 - Postmenopausal atrophic vaginitis (2) Pelvic cramping: Code(s): R10.2 - Pelvic and perineal pain Plan Discussed: Reviewed ultrasound findings-no indication for endometrial biopsy. BV culture obtained. Urinalysis 2+ leukocytes, 3+ blood sent to lab for culture. Vaginal atrophy and dyspareunia relationship-treatment options, initiation with Replens moisturizer, instructions reviewed-may take up to 12 weeks to see improvements. Plan follow up in 3 months for recheck, patient would like to do this p.r.n. Alternative use of vaginal estrogen if no contraindications in indicated. Call if increasing pelvic pain or any vaginal bleeding for further evaluation. If pelvic cramping worsens or persists can consider MRI for further evaluation. Await test results for further plan of care. Sign a release for Pap record. Sign up for patient portal. All of her questions and concerns were addressed to the best of my ability and shared decision making. She is agreeable to the plan of care. This note is constructed using voice recognition software. While every effort has been made to ensure accuracy, [employer] errors may have been included. Orders: Orders Bacterial Vaginosis Panel Today R10.2 - Pelvic and perineal pain Urine Culture Today R10.2 - Pelvic and perineal pain, R31.9 - Hematuria, unspecified CT NG by PCR Today R10.2 - Pelvic and perineal pain AMB Urinalysis Automated Today R10.2 - Pelvic and perineal pain Coding Level of Care Code New Pt Level 3 (50105) Diagnoses Vaginal atrophy N95.2 Pelvic cramping R10.2
== END 2024-05-21 08:40 | disposition home or self-care (01) ==
LOC: HO.HWS 07:35
PROVIDERS: PCP Family Medicine; Visit Provider Advanced Practice Midwife
DX: N95.2 Postmenopausal atrophic vaginitis (principal); R10.2 Pelvic and perineal pain
CPT/HCPCS: 99203

== ENCOUNTER 2024-05-21 07:34 | Outpatient (REF) | payer OTHER, SELFPAY ==
[2024-05-21 18:14] LABS: Bacterial Vaginosis PCR NEGATIVE (Negative); Candida Group PCR NOT DETECTED (Not Detect); Candida glab krusei PCR NOT DETECTED (Not Detect); Trichomonas vaginalis PCR NOT DETECTED (Not Detect)
[2024-05-22 02:56] LABS: CT PCR NOT DETECTED (Not Detect.); NG PCR NOT DETECTED (Not Detect.)
== END 2024-05-21 07:35 | disposition home or self-care (01) ==
LOC: HO.LAB 07:34
PROVIDERS: PCP Family Medicine; Visit Provider Advanced Practice Midwife
DX: R10.2 Pelvic and perineal pain (principal); R31.9 Hematuria, unspecified
CPT/HCPCS: 0352U; 81003; 87086; 87491; 87591

== ENCOUNTER 2024-05-21 08:20 | Outpatient (REF) | payer OTHER, SELFPAY | END 2024-05-21 08:21 | disposition home or self-care (01) | LOC: HO.LNP 08:20 | PROVIDERS: Visit Provider Advanced Practice Midwife | DX: Z13.89 Encounter for screening for other disorder (principal) ==

== ENCOUNTER 2024-05-26 23:14 | Emergency (ER) | payer OTHER, SELFPAY ==
[2024-05-26 23:30] VITALS: BP 115/82; PULSE 80; RESP 16; TEMP 36.6; O2SAT 97; BMI 42.3
--- NOTE | 2024-05-27 01:47 | ED.EYEPROB ---
HPI - Eye Problem General Chief complaint: Eye Problems Stated complaint: left eye conjunctivtis Time Seen by Provider: 05/27/24 01:44 Source: patient Limitations: no limitations History of Present Illness ED Provider: Sofiya norton PA-C HPI Narrative: 58-year-old female with a history of diabetes presents with bilateral eye irritation x1 day. The left eye is worse than the right. Associated discharge, and ?gritty feeling of the eyes?. Patient does use contact lenses at times. Denies foreign body or projectile to the eye. Denies preceding viral syndrome. Related Data Home Medications ?Medication ?Instructions ?Recorded ?Confirmed atorvastatin 40 mg tablet 40 mg PO DAILY 09/29/20 01/20/24 hydrochlorothiazide 25 mg tablet 25 mg PO DAILY 09/29/20 01/20/24 insulin glargine 100 unit/mL (3 unit subcut 09/29/20 01/20/24 mL) subcutaneous pen insulin regular human 100 unit/mL 30 unit subcut TID PRN 09/29/20 01/20/24 injection solution semaglutide 2 mg/dose (8 mg/3 mL) mg subcut 05/21/24 subcutaneous pen injector (Ozempic) Previous Rx's ?Medication ?Instructions ?Recorded amlodipine 2.5 mg tablet 2.5 mg PO DAILY #90 tabs 01/20/24 ofloxacin 0.3 % eye drops (Ocuflox) See Rx Instructions ophthalmic 05/27/24 (eye) .COMPLEX #10 mL Allergies Allergy/AdvReac Type Severity Reaction Status Date / Time lisinopril [LISINOPRIL] Allergy Unknown COUGH Verified 05/26/24 23:31 losartan [From COZAAR] Allergy Unknown UNKNOWN Verified 05/26/24 23:31 Review of Systems Review of Systems: Yes all other systems are reviewed and are negative Constitutional: Constitutional: Denies fatigue and Denies fever(s) Eyes: Eyes: Reports eye discharge and Reports irritation ENT: Denies nasal congestion Respiratory: Respiratory: Denies cough Endocrine: Endocrine: Denies fatigue PMF Past Medical History Attestation statement: The following information was validated with the patient. Medical History HTN (hypertension) Enlarged RV (right ventricle) Hyperlipidemia Diabetes mellitus HTN (hypertension) Surgical History Hx of colonoscopy Hx of hernia repair Hx of cholecystectomy Family History Family History (Updated 05/21/24 @ 07:50 by NIALL Tellez) Father Diabetes HTN (hypertension) Bladder cancer Mother Diabetes HTN (hypertension) Cancer History of breast cancer Social History Social History Alcohol intake: current Alcohol intake frequency: does not drink Do you have a plan to hurt others: No Plan Physical Exam Vital Signs: Vital Signs: Last Vital Signs Temp 97.8 F 05/26/24 23:30 Pulse 80 05/26/24 23:30 Resp 16 05/26/24 23:30 BP 115/82 05/26/24 23:30 Pulse Ox 97 05/26/24 23:30 O2 Del Method Room Air 05/26/24 23:30 BMI result Body Mass Index 42.3 Const: Other: Alert well-appearing Orientation/consciousness: patient oriented x3 Eyes: Other: The palpebral conjunctiva is injected of the left eye, minimal injection of the bulbar conjunctiva, no overt irritation noted of the bulbar conjunctiva of the right eye, dry ocular discharge noted over the lower lids, primarily of the left Resp: Other: Nonlabored respiration Skin: Other: Warm dry no rash Neuro: General: patient oriented x3 and no focal motor deficits Psych: Other: Calm cooperative Medical Decision Making Medical Decision Making MDM Narrative: 58-year-old female with a history of diabetes presents with bilateral eye irritation x1 day. The left eye is worse than the right. Associated discharge, and ?gritty feeling of the eyes?. Patient does use contact lenses at times. Denies foreign body or projectile to the eye. Denies preceding viral syndrome. Problem: Diabetes History: Per patient I have considered the following differential diagnoses: Conjunctivitis, corneal abrasion, corneal ulceration, corneal foreign body, globe rupture Plan: Patient has simple conjunctivitis, there was no mechanism of injury to the eye to suggest an abrasion/ulceration. She has risk factors being diabetic and wearing contact lenses, we will send with ciprofloxacin drops. She can follow up with the primary care provider as needed Discharge Plan Discharge Clinical Impression: Conjunctivitis Patient Disposition: Home, Self-Care Instructions: Conjunctivitis (ED) Additional Instructions: You are being treated for conjunctivitis. See home care instructions. Use the Cipro ofloxacin drops as directed. Follow up with your primary care provider as needed. Refrain from using your contact lenses while your eyes are actively infected. Prescriptions: New ofloxacin [Ocuflox] 0.3 % drops See Rx Instructions .ROUTE .COMPLEX Qty: 10 0RF Rx Instructions: put 1-2 drps into affected eye(s) every 2-4 h x 2 days, then 1-2 drps 4 times/day days 3-7 No Action amlodipine 2.5 mg tablet 2.5 mg PO DAILY Qty: 90 3RF Lantus Solostar U-100 Insulin 100 unit/mL (3 mL) insulin pen subcut hydrochlorothiazide 25 mg tablet 25 mg PO DAILY Humulin R Regular U-100 Insuln 100 unit/mL solution 30 unit subcut TID PRN atorvastatin 40 mg tablet 40 mg PO DAILY Ozempic 2 mg/dose (8 mg/3 mL) pen injector subcut Print Language: [place]an
[2024-05-27 02:29] VITALS: BP 115/82; PULSE 80; RESP 16; TEMP 36.6; O2SAT 97
== END 2024-05-27 02:32 | disposition home or self-care (01) ==
PROVIDERS: Emergency Provider Emergency Medicine; PCP Family Medicine
DX: H10.9 Unspecified conjunctivitis (principal); E11.9 Type 2 diabetes mellitus without complications; I10 Essential (primary) hypertension; E78.5 Hyperlipidemia, unspecified; Z79.4 Long term (current) use of insulin
CPT/HCPCS: 99283

== ENCOUNTER 2024-08-29 08:07 | Outpatient (REF) | payer OTHER, SELFPAY ==
[2024-08-29 09:58] LABS: Estimated Average Glucose 180 mg/dL; Hemoglobin A1C 232.5176 umol/L; Hemoglobin A1c % 7.9 % (<6.0); Total Hemoglobin (HGBA1C) 3684.6505 umol/L
[2024-08-29 10:23] LABS: Alanine Aminotransferase 24 U/L (0-31); Albumin Level 3.9 g/dL (3.5-5.0); Alkaline Phosphatase 124 U/L (39-117); Anion Gap 14 (12-20); Aspartate Amino Transferase 20 U/L (5-31); Bilirubin Total 0.3 mg/dL (0.0-1.0); Blood Urea Nitrogen 14 mg/dL (9-16); Calcium 9.4 mg/dL (8.4-10.2); Carbon Dioxide 21 mmol/L (22-29); Chloride 105 mmol/L (96-108); Cholesterol 143 mg/dL (<200); Estimated Glomerular Filt Rate > 60; Glucose Random 249 mg/dL (60-115); HDL Cholesterol 30 mg/dL (>40); Potassium 3.9 mmol/L (3.3-5.1); Sodium 136 mmol/L (135-145); Total Protein 7.5 g/dL (6.5-8.0); Triglycerides 548 mg/dL (<150)
== END 2024-08-29 08:08 | disposition home or self-care (01) ==
LOC: HO.LABR 08:07
PROVIDERS: PCP Family Medicine; Visit Provider Family Medicine
DX: E11.65 Type 2 diabetes mellitus with hyperglycemia (principal)
CPT/HCPCS: 36415; 80053; 80061; 83036

== ENCOUNTER 2024-11-19 07:58 | Outpatient (REF) | payer OTHER, SELFPAY | END 2024-11-19 07:59 | disposition home or self-care (01) | LOC: HO.MAMMO 07:58 | PROVIDERS: PCP Family Medicine; Visit Provider Family Medicine | DX: Z12.31 Encounter for screening mammogram for malignant neoplasm of breast (principal) | CPT/HCPCS: 77063; 77067 ==

== ENCOUNTER → 2024-11-19 08:00 | Outpatient (BNV) | payer OTHER, SELFPAY | PROVIDERS: PCP Family Medicine; Visit Provider Internal Medicine | DX: Z12.31 Encounter for screening mammogram for malignant neoplasm of breast (principal) | CPT/HCPCS: 77063; 77067 ==

== ENCOUNTER 2024-11-21 07:23 | Outpatient (REF) | payer OTHER, SELFPAY ==
[2024-11-21 07:48] LABS: MANUAL DIFF FLAG NO
[2024-11-21 08:02] LABS: Basophils Absolute Auto 0.1 X10*3/uL (0.0-0.2); Basophils Percent Auto 0.5 % (0-2); Eosinophils Absolute Auto 0.2 X10*3/uL (0.0-0.4); Eosinophils Percent Auto 1.1 % (0-4); Hematocrit 43.3 % (37.0-47.0); Hemoglobin 14.8 g/dl (12.0-16.0); Imm Gran Abs Auto 0.06 X10*3/uL (0.00-0.03); Imm Gran Pct Auto 0.5 % (0.0-0.4); Lymphocytes Absolute Auto 2.7 X10*3/uL (1.2-4.9); Lymphocytes Percent Auto 20.7 % (20-40); Mean Corpuscular HGB Conc 34.2 g/dl (31.0-35.0); Mean Corpuscular Hemoglobin 28.2 pg (27.0-33.0); Mean Corpuscular Volume 82.6 fL (80.0-98.0); Mean Platelet Volume 10.3 fL (9.4-12.3); Monocytes Absolute Auto 0.7 X10*3/uL (0.1-1.2); Monocytes Percent Auto 5.3 % (2-11); Neutrophils Absolute Auto 9.4 x10*3/uL (2.0-8.3); Neutrophils Percent Auto 71.9 % (45-73); Platelet Count 283 X10*3/uL (160-400); Red Blood Count 5.24 X10*6/uL (4.20-5.50); Red Cell Distribution Width 13.4 % (11.0-16.0); White Blood Count 13.1 X10*3/uL (4.8-10.8)
[2024-11-21 08:34] LABS: Iron 45 mcg/dL (30-160); Percent Iron Saturation 20 % (15-50); Total Iron Binding Capacity 223 mcg/dL (228-428); Unsaturated Iron Binding 178 ug/dL
[2024-11-21 08:50] LABS: Ferritin 283 ng/mL (10-250)
[2024-11-21 08:56] LABS: Vitamin B12 450 pg/mL (200-900)
== END 2024-11-21 07:24 | disposition home or self-care (01) ==
LOC: HO.LAB 07:23
PROVIDERS: PCP Family Medicine; Visit Provider Family Medicine
DX: G47.62 Sleep related leg cramps (principal); G25.81 Restless legs syndrome
CPT/HCPCS: 36415; 82607; 82728; 83540; 83735; 85025

== ENCOUNTER 2025-03-24 08:46 | Outpatient (AMB) | payer OTHER, SELFPAY ==
[2025-03-24 08:49] VITALS: BP 122/70; PULSE 78; BMI 40.9
--- NOTE | 2025-03-24 08:49 | A.OFFVIS_ITS ---
Vital Signs 03/24/25 08:49 Height 5 ft 6 in Weight 253 lb 8.505 oz BMI 40.9 BP 122/70 Blood Pressure Location Lt brachial Position Sitting Pulse 78 Pulse Source Monitor Intake Visit Reasons: 1 yr f/up Intake Note: 1 Year follow Accompanied by: Self / Same As Patient Allergies lisinopril (LISINOPRIL) Allergy (Unknown, Verified 03/24/25 08:53) COUGH losartan (From COZAAR) Allergy (Unknown, Verified 03/24/25 08:53) UNKNOWN Medication List - Last Reconciled 03/24/25 by Mikey Marin MD amlodipine 2.5 mg PO DAILY atorvastatin 40 mg PO DAILY hydrochlorothiazide 25 mg PO DAILY insulin glargine units subcut insulin regular human 30 units subcut TID PRN tirzepatide (Mounjaro) 10 mg subcut QWEEK HPI Comments Details: Kristin comes for follow-up. Overall she has been doing well. She has shifted to doing night work now and also doing and putting up a new house where she is doing a lot of labor intensive work. With all that kind of work she has no significant chest pain or shortness of breath. She is still having issues with losing weight. She is currently on Mounjaro and has led to some improved diabetes control. Her blood pressures been well controlled overall. She denies any exertional chest pain or shortness of breath. No orthopnea, PND, leg edema. She occasionally feels fluttering in his chest but no prolonged palpitation irregular heartbeat. These are mostly related to Mibi increased stress and she is able to control them with deep breathing exercises. [facility] Medical History HTN (hypertension) Enlarged RV (right ventricle) Hyperlipidemia Diabetes mellitus HTN (hypertension) Surgical History Hx of colonoscopy Hx of hernia repair Hx of cholecystectomy Family History (Updated 05/21/24 @ 07:50 by NIALL Tellez) Father Diabetes HTN (hypertension) Bladder cancer Mother Diabetes HTN (hypertension) Cancer History of breast cancer Social History Alcohol intake: never Review of Systems Const Denies daytime sleepiness, Denies difficulty sleeping, Denies snoring, Denies st ops breathing during sleep and Denies weakness Card Denies chest pain, Denies rapid heart rate, Denies irregular heart rhythm, Denies claudication, Denies leg edema, Denies lightheadedness, Denies palpitations, Denies dyspnea, Denies dyspnea on exertion, Denies orthopnea, Denies paroxysmal nocturnal dyspnea and Denies slow heart rate Resp Denies cough, Denies dyspnea, Denies dyspnea on exertion and Denies snoring GI Reports no additional complaints, Denies hematochezia, Denies change in stool character and Denies dyspepsia Musc Denies abnormal gait, Denies muscle weakness and Denies numbness Neuro Denies abnormal gait, Denies numbness and Denies weakness Endo Denies palpitations Physical Exam Vital Signs: Last Vital Signs Pulse 78 03/24/25 08:49 BP 122/70 03/24/25 08:49 BMI result Body Mass Index 40.9 Const General: cooperative, comfortable, no acute distress, alert, awake and well groomed Nutritional Appearance: obese Orientation/consciousness: patient oriented x3 Limitations: no limitations HEENT Head: Yes normocephalic and Yes atraumatic Neck Neck: Yes trachea midline, Yes supple and Yes no JVD Chest Chest palpation & inspection: normal inspection of the chest Resp Effort & Inspection: normal respiratory effort Auscultation: clear to auscultation bilaterally Cardio Jugular venous distension: no JVD Palpation: normal PMI Rate: regular rate Rhythm: regular rhythm Heart sounds: S1 normal heart sound present and S2 normal heart sound present GI Auscultation: normal bowel sounds Skin General skin exam: no rashes or lesions noted Neuro General: patient oriented x3 and no focal motor deficits Extrem General: Yes no clubbing, cyanosis or edema Psych Appearance: grossly normal Office Procedures EKG Details: EKGs shows normal sinus rhythm with low-voltage QRS most likely due to body habitus otherwise normal EKG [id number], Complete Assessment & Plan Assessment & Plan (1) HTN (hypertension): Code(s): I10 - Essential (primary) hypertension Category: Medical Plan: Patient with multiple cardiovascular risk factors without any concerning symptoms at this point time. All of these risk factors are well controlled at this point time. Blood pressure is well controlled and importance of good blood pressure control was discussed. Target goal blood pressure less than 130/84. Advised to continue monitor blood pressure at work intermittently. Currently on high-intensity statin therapy with target goal LDL less than 70 mg/dL. She is going for lipid check in the near future. Also currently doing well with diabetes control especially with GLP 1 antagonist. Continue the same. Importance of aggressive diabetes control was discussed. Her most important comorbidities sudden weight which she is trying to work on religiously. She is encouraged to continue participate in weight loss program and regular physical activity. She understands it. She is advised to call me with any symptoms that are concerning. She does have symptoms of fluttering in his chest which appear to be more likely related to extra systoles. Discussed with her about considering to invest in phone based EKG device that may help with diagnose of other arrhythmias. She is at risk for development of atrial fibrillation. Will follow up in the clinic in 1 year's time, sooner p.r.n.. Thank you for allowing me to partake in her care Coding Level of Care Code Est Pt Level 3 (91393) Complex EM visit Add On G2211 Diagnoses HTN (hypertension) I10 CPT Codes EKG - CPT: 82767-[id number], Complete ([id number])
--- OUTSIDE RECORDS SUMMARY | 2025-03-24 09:15 | XMS_ITS | Clinical Summary ---
Author Organization [facility] Address [address] [address] Phone Care Team Providers Care Keg Header Name Role Phone Yolanda Jaime MD Primary Care Provider Allergies Active Allergy Reactions Criticality Noted Date Comments Losartan Swelling High 03/27/2019 Lisinopril Cough High 03/27/2019 Per patient:Is a horrible coough Medications TRULICITY 1.5 mg/0.5 mL subcutaneous injection INJ 1 SYRINGE SC ONCE WEEKLY 11 9 Active hydroCHLOROthiazi de (HYDRODIURIL) 25 MG tablet TK 1 T PO QD 0 9 Active LANTUS SOLOSTAR U-100 INSULIN 100 unit/mL (3 mL) InPn injection pen INJECT 90 UNITS UNDER THE SKIN PER INSULIN PROTOCOL IN 2 SEPARATE BOLUS DOSES. 6 9 Active BD INSULIN PEN NEEDLE UF SHORT 31 gauge x 5/16 Ndle USE TO INJECT INSULIN QID 3 9 Active aspirin 81 MG EC tablet Take 81 mg by mouth daily. Active atorvastatin (LIPITOR) 40 MG tablet TK 1 T PO QD 0 9 Active amLODIPine (NORVASC) 2.5 MG tablet Take 1 tablet by mouth every morning. 4 Active DEXCOM G6 SENSOR Annemarie CHANGE EVERY 10 DAYS DIRECTED 4 Active insulin lispro (ADMELOG, HUMALOG) 100 unit/mL injection pen ADMINISTER 30 UNITS UNDER THE SKIN THREE TIMES DAILY 4 Active HUMULIN R REGULAR U-100 INSULN 100 unit/mL injection INJECT 30 UNITS UNDER THE SKIN THREE TIMES DAILY NEEDED 4 Active OZEMPIC 2 mg/dose (8 mg/3 mL) subcutaneous injection pen INJUECT 2 MG UNDER THE SKIN EVERY WEEK Active Active Problems No known active problems Social History Tobacco Use Types Packs/Day Years Used Date Smoking Tobacco: Never Smokeless Tobacco: Never Tobacco Cessation:Counseling Given: Not Answered Alcohol Use Standard Drinks/Week Comments Never 0 (1 standard drink = 0.6 oz pur e alcohol) Education Answer Date Recorded Are you interested in more education? Not on maribell e 11/16/2022 Are you concerned about learning? Not on file 11/16/2022 No 11/16/2022 No 11/16/2022 Digital Access Answer Date Recorded No 12/15/2022 No 12/15/2022 Reliable internet access at home? Not on file 12/15/2022 Device with a working camera? Not on file Intimate Partner Violence Answer Date R ecorded Are you denied basic needs s uch as food, clothing, or medical care? No 02/03/2024 In the past 12 months have y ou been in a relationship with a person who hurts, threatens, or tries to control you? No 02/03/2024 Are you denied basic needs s uch as food, clothing, or medical care? No 02/03/2024 In the past 12 months have y ou been in a relationship with a person who hurts, threatens, or tries to control you? No 02/03/2024 Comments Unknown Sex and Gender Information Value Date Recorded Sex Assigned at Not on file Legal Sex Female 9:42 PM EDT Gender Identity Not on file Sexual Orientation Not on file Last Filed Vital Signs Vital Sign Reading Time Taken Comments Blood Pressure 122/80 02/03/2024 7:00 PM EDT Pulse 80 02/03/2024 7:00 PM EDT Temperature 37 C (98.6 F) 02/03/2024 7:00 PM EDT Respiratory Rate 18 02/03/2024 7:00 PM EDT Oxygen Saturation 98% 02/03/2024 7:00 PM EDT Inhaled Oxygen Concentration - - Weight 119.7 kg (264 lb) 10/23/2023 2:53 PM EDT Height 168.9 cm (5' 6.5 ) 10/23/2023 2:53 PM EDT Body Mass Index 41.97 10/23/2023 2:53 PM EDT Plan of Treatment Health Maintenance Due Date Last Done Comments LIPID PANEL 1964 DEPRESSION SCREENING 1976 HEPATITIS C SCREENING 1982 HIV ONE-TIME SCREENING (18-65 YEARS) 1982 SCREENING FOR DIABETES 1999 MAMMOGRAM 2004 COLOGUARD 2009 COLONOSCOPY 2009 COLORECTAL CANCER SCREENING 2009 FIT TEST 2009 FOBT 2009 SIGMOIDOSCOPY 2009 VIRTUAL COLONOSCOPY 2009 PNEUMOCOCCAL VACCINES (50+ years) (2 of 2 - PCV) 2014 06/01/1999 ZOSTER VACCINES (1 of 2) 2014 Adult Td,Tdap Booster 09/05/2017 09/05/2007 PAP SMEAR 11/17/2023 11/16/2020, 10/15/2017 RSV VACCINE (1 - Risk 60-74 years 1-dose series) 2024 POTASSIUM LEVEL 02/02/2025 02/03/2024 INFLUENZA VACCINE (#1) 2025 , 05/07/2019, 05/07/2018, Additional history exists COVID-19 VACCINE (3 - season) 2025 08/02/2020, 07/11/2020 SMOKING STATUS SCREENING (Once After 26 Yrs) Completed 10/23/2023 HEPATITIS A VACCINES Aged Out No long er eligible based on patient's age to complete this topic HIB VACCINES Aged Out No longer eligi ble based on patient's age to complete this topic MENINGOCOCCAL VACCINES (ACWY) Aged Out No longer eligible based on patient's age to complete this topic MENINGOCOCCAL VACCINES (B) Aged Out N o longer eligible based on patient's age to complete this topic Medical Devices Not on file Procedures Procedure Name Priority Date/Time Associated Diagnosis Comments BASIC METABOLIC PANEL STAT 02/03/2024 2:06 PM EDT PAP TEST Routine 11/16/2020 12:00 AM EDT from Last 3 Months or Most Recently Relevant to Health Maintenance Results * (ABNORMAL) Basic metabolic panel (02/03/2024 2:06 PM EDT) SODIUM 140 133 - 146 mmol/L [facility] CHLORIDE 103 96 - 108 mmol/L [facility] POTASSIUM 3.8 3.3 - 5.1 mmol/L [facility] Comment:Specimen slightly he molyzed, result may be falsely elevated. CO2 23 21 - 35 mmol/L [facility] BUN 12 6 - 19 mg/dL [facility] CREATININE 0.70 0.5 - 1.5 mg/dL [facility] GLUCOSE 195(H) 70 - 99 mg/dL [facility] CALCIUM 9.2 8.4 - 10.3 mg/dL [facility] EGFR 100 >59 mL/min/1.7 3m2 [facility] Comment:Estimated glomerular filtration rate calculated using the CKD-EPI refit equation. ANION GAP 18 10 - 20 mmol/L [facility] Blood 02/03/2024 2:06 PM EDT 02/03/2024 2:23 PM EDT Ben Bernardo MD LAB BLOOD ORDERABLES Final Result Performing Organization Address City/State/[facility] Co de Phone Number [address] [address] * Pap Smear (11/16/2020 12:00 AM EDT) 11/16/2020 11/17/2020 9:0 9 AM EDT Narrative SEE NARRATIVE - 11/24/2020 9:43 AM EDT [address] [address] Decorative Engraver Apprentice: Kandace Lindo MD ROOM INSPECTOR Cytology Report FINAL DIAGNOSIS A. PAP SMEAR (SUREPATH) CE: SPECIMEN ADEQUACY: Satisfactory for evaluation; transformation zone present. INTERPRETATION: NEGATIVE FOR INTRAEPITHELIAL LESION OR MALIGNANCY. Electronically Signed Out By: NICOLE Yost(ASCP) The Pap test is a screening test primarily for squamous cancers and precursors and has associated false-negative and false-positive results. New technologies such as liquid-based preparations may decrease but will not eliminate all false-negative results. Regular sampling and follow-up of unexplained clinical signs and symptoms are recommended to minimize false negative results. PROCEDURES/ADDENDA HPV Testing (Requested) Ordered Date: 11/17/2020 A. PAP SMEAR (SUREPATH) CE: Human Papilloma Virus Test Negative for high-risk human papillomavirus types 16, 18, 45 and the Other high risk probe set (Includes 31, 33, 35, 39, 51, 52, 56, 58, 59, 66, 68) by Luba [employer] Onclarity HR-HPV analysis. Clinical correlation is advised. This HPV test was performed at [facility], [address] [place] [address]. This test has been FDA approved for SurePath cervical cytology specimens. The accuracy and precision of this test for all other specimen sources has been verified in the Cytopathology Laboratory of the [facility] and has not been cleared or approved by the U.S. Food and Drug Administration. Clinical correlation is advised. CLINICAL HISTORY Date of Last Menstrual Period: Not Provided Menstrual History: Post Menopausal Other Clinical Conditions: Screening Pap SPECIMEN SOURCE A: PAP SMEAR (SUREPATH) CE Patient Name: MARILYN MILIAN : 1965 (Age: 55) Sex: F Institution: [facility] Location: [facility] Date of Collection: 11/16/2020 Date of Reported: 11/24/2020 09:43 Results to: Yolanda Jaime MD us Yolanda Jaime MD CYTOLOGY ORDERABLES Final Re sult SEE NARRATIVE from Last 3 Months or Most Recently Relevant to Health Maintenance Insurance [employer] Member Subscriber Plan / Payer (Ef fective 2019-Present) Name:Marilyn Milian Relation to Subscriber:Self Name:Adam Marilyn Payer ID:[id number] (NAIC) Type:PPO Address: [place] [phone] TEQUIL[address] GIMENEZ [address] [employer] [facility]MINISTRAT[facility] [place] [address] INSURANCE Care Teams Keg Header Relationship Specialty Start Date End Date Yolanda Jaime MD [address] [place] [address] PCP - General Family Medicine 02/03/24 Additional Source Comments The information contained in this document represents components of the legal health record. It is not the complete legal health record.[facility]
--- OUTSIDE RECORDS SUMMARY | 2025-03-24 09:15 | XMS_ITS | Patient Health Record ---
Author Organization [facility] Address [address] [place] [address] Care Team Providers Care Maintenance Engineer Name Role Phone Yolanda Jaime Primary Care Provider Chadwick Simeon Unavailable [phone] Allergies Allergen (clinical drug ingredient) Drug/Non Drug Allergy documented on EMR Reaction Allergy Type Onset Date Status codeine Codeine (uncoded) vomiting,nausea Allergy Active losartan Cozaar edema- legs,hands Drug Allergy Active lisinopril Lisinopril cough Drug Allergy Activ e Reason For Referral No Information Medications Medication SIG (Take, Route, Frequency, Duration) Notes Start Date End Date Status Insulin Syringe 31G X 5/16 as directed Active hydroCHLOROthiazide 25 MG as directed Orally Active Aspirin 81 MG 1 tablet Orally Once a day; Duration: 30 day(s) Active Atorvastatin Calcium 40 MG 1 tablet Oral ly Once a day Active HumuLIN R 100 UNIT/ML as directed Injection Not-Taking Freestyle Test Strips Not-Taking FreeStyle Lancets - as directed Not-Taking FreeStyle Lite Test - as directed In Vitro Not-Taking Work Note . . . patient out of work until 09/25/19 due to infection and surgery 09/21/2019 Active Augmentin 500-125 MG 1 tablet Orally every 8 hrs; Duration: 10 days 09/21/2019 Not-Taking Lantus SoloStar 100 UNIT/ML as directed Subcutaneous Active Trulicity 1.5 MG/0.5ML as directed Subcutaneous Active Immunizations Vaccine Route Administration Date Status Comme nts Influenza Unknown 03/23/2019 Administered Social History Tobacco Use: Social History Observation Description Date Details (start date - stop date) Never Smoker NA - NA Tobacco Use/Smoking Question Answer Notes Are you a: nonsmoker Additional Findings: Tobacco Non-User Current no n-smoker Alcohol Screen Question Answer Notes Did you have a drink containing alcohol in the p ast year? Yes Points 0 Interpretation Negative Tobacco use other than smoking: Question Answer Notes Are you an other tobacco user? No Problems Problem Type SNOMED Code ICD Code Onset Dates Problem Status W/U Status Risk Notes Problem Acquired hallux valgus (20057642) Hallux valgus (acquired), left foot (M20.12) Active confirmed Problem Acquired hallux valgus (72665732) Hallux valgus (acquired), right foot (M20.11) Active confirmed Problem Acquired hammer toe of right foot (5867086182158 105) Other hammer toe(s) (acquired), right foot (M20.41) Active confirmed Problem Acquired hammer toe of left foot (2650577129406 103) Other hammer toe(s) (acquired), left foot (M20.42) Active confirmed Plan Of Treatment Pending Test Test Name Order Date 01449- I&D ABSCESS-COMPLICATED,MULTI 08/2019 Insurance Providers Payer Name Payer Address Payer Phone Subscriber Number Group Number Insured Name Patient Relationship to Insured Coverage Start Date Coverage End Date Blue Benefits [address] [address] [place] [address] [phone] [id number] Marilyn Medina Self - patient is the insured Medical (General) History Medical History History ICD Code 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
== END 2025-03-24 09:13 | disposition home or self-care (01) ==
LOC: HO.HCS 08:47
PROVIDERS: PCP Family Medicine; Visit Provider Internal Medicine Cardiovascular Disease
DX: I10 Essential (primary) hypertension (principal)
CPT/HCPCS: 93010; 99213

== ENCOUNTER 2025-03-24 08:46 | Outpatient (REF) | payer OTHER, SELFPAY | END 2025-03-24 08:47 | disposition home or self-care (01) | LOC: HO.LAB 08:46 | PROVIDERS: Absent Provider Family Medicine; PCP Family Medicine; Visit Provider Internal Medicine Cardiovascular Disease | DX: I10 Essential (primary) hypertension (principal); E11.65 Type 2 diabetes mellitus with hyperglycemia; Z79.4 Long term (current) use of insulin; Z79.899 Other long term (current) drug therapy | CPT/HCPCS: 93005 ==

== ENCOUNTER 2025-03-31 07:14 | Outpatient (REF) | payer OTHER, SELFPAY ==
--- OUTSIDE RECORDS SUMMARY | 2025-03-31 07:17 | XMS_ITS | Patient Health Record ---
Author [facility] Address [address] [place] [address] Care Team Providers Care Nurse Gynecology Name Role Phone Yolanda Jaime Primary Care Provider Chadwick Simeon Unavailable [phone] Allergies Allergen (clinical drug ingredient) Drug/Non Drug [...] Status Risk Notes Problem Acquired hallux valgus (30171597) Hallux valgus (acquired), left foot (M20.12) Active confirmed Problem Acquired hallux valgus (63110250) Hallux valgus (acquired), right foot (M20.11) Active confirmed Problem Acquired hammer toe of right foot (7973080701657 105) Other hammer toe(s) (acquired), right foot (M20.41) Active confirmed Problem Acquired hammer toe of left foot (2453954713842 103) Other hammer toe(s) (acquired), left foot (M20.42) Active confirmed Plan Of Treatment Pending Test Test Name Order Date 32574- I&D ABSCESS-COMPLICATED,MULTI 08/2019 Insurance Providers Payer Name Payer Address Payer Phone Subscriber Number Group Number Insured Name Patient Relationship to Insured Coverage Start Date Coverage End Date Blue Benefits [address] [address] [place] [address] [phone] [id number] Marilyn Medina Self - patient is the insured Medical (General) History Medical History History ICD Code 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
--- OUTSIDE RECORDS SUMMARY | 2025-03-31 07:17 | XMS_ITS | Clinical Summary ---
Author Organization [facility] Address [address] [address] Phone Care Team Providers Care Nurse School Name Role Phone Yolanda Jaime MD Primary [...] EDT) SODIUM 140 133 - 146 mmol/L [facility] CHLORIDE 103 96 - 108 mmol/L [facility] POTASSIUM 3.8 3.3 - 5.1 mmol/L [facility] Comment:Specimen slightly he molyzed, result may be falsely elevated. CO2 23 21 - 35 mmol/L [facility] BUN 12 6 - 19 mg/dL [facility] CREATININE 0.70 0.5 - 1.5 mg/dL [facility] GLUCOSE 195(H) 70 - 99 mg/dL [facility] CALCIUM 9.2 8.4 - 10.3 mg/dL [facility] EGFR 100 >59 mL/min/1.7 3m2 [facility] Comment:Estimated glomerular filtration rate calculated using the CKD-EPI refit equation. ANION GAP 18 10 - 20 mmol/L [facility] Blood 02/03/2024 2:06 PM EDT 02/03/2024 2:23 PM EDT Ben Bernardo MD LAB BLOOD ORDERABLES Final Result Performing Organization Address City/State/[facility] Co de Phone Number [address] [address] * Pap Smear (11/16/2020 12:00 AM EDT) 11/16/2020 11/17/2020 9:0 9 AM EDT Narrative SEE NARRATIVE - 11/24/2020 9:43 AM EDT [address] [address] Dispatch Officer: Kandace Lindo MD DIGGING MACHINE OPERATOR Cytology Report FINAL DIAGNOSIS A. PAP SMEAR [...] 56, 58, 59, 66, 68) by Luba [employer] Onclarity HR-HPV analysis. Clinical correlation is advised. This HPV test was performed at [facility], [address] [place] [address]. This test has been FDA approved for SurePath cervical cytology specimens. The accuracy and precision of this test for all other specimen sources has been verified in the Cytopathology Laboratory of the [facility] and has not been cleared or approved by the U.S. Food and Drug Administration. Clinical correlation is advised. CLINICAL HISTORY Date of Last Menstrual Period: Not Provided Menstrual History: Post Menopausal Other Clinical Conditions: Screening Pap SPECIMEN SOURCE A: PAP SMEAR (SUREPATH) CE Patient Name: MARILYN MILIAN : 1965 (Age: 55) Sex: F Institution: [facility] Location: [facility] Date of Collection: 11/16/2020 Date of Reported: 11/24/2020 09:43 Results to: Yolanda Jaime MD us Yolanda Jaime MD CYTOLOGY ORDERABLES Final Re sult SEE NARRATIVE from Last 3 Months or Most Recently Relevant to Health Maintenance Insurance [employer] Member Subscriber Plan / Payer (Ef fective 2019-Present) Name:Marilyn Milian Relation to Subscriber:Self Name:Adam Marilyn Payer ID:[id number] (NAIC) Type:PPO Address: [place] [phone] TEQUILA GIMENEZ [address] [employer] [facility]MIN[facility]ATORS [address] [employer] [facility]MIN[employer]ORS [facility] ADMINISTRATORS [place] [address] INSURANCE Care Teams Nurse School Relationship Specialty Start Date End Date Yolanda Jaime MD [address] [place] [address] PCP - General Family Medicine 02/03/24 Additional Source Comments The information contained in this document represents components of the legal health record. It is not the complete legal health record.[facility]
[2025-03-31 07:44] LABS: Hemoglobin A1C 199.6866 umol/L; Total Hemoglobin (HGBA1C) 3738.0056 umol/L
[2025-03-31 07:57] LABS: Anion Gap 12 (12-20); Blood Urea Nitrogen 13 mg/dL (9-16); Calcium 9.0 mg/dL (8.4-10.2); Carbon Dioxide 26 mmol/L (22-29); Chloride 106 mmol/L (96-108); Cholesterol 102 mg/dL (<200); Estimated Glomerular Filt Rate > 60; HDL Cholesterol 33 mg/dL (>40); Potassium 3.8 mmol/L (3.3-5.1); Sodium 140 mmol/L (135-145); Triglycerides 158 mg/dL (<150)
[2025-03-31 09:57] LABS: Microalbum/Creatinine Ratio Ur 21.3 ug/mg cr (<30)
== END 2025-03-31 07:15 | disposition home or self-care (01) ==
LOC: HO.LAB 07:14
PROVIDERS: PCP Family Medicine; Visit Provider Family Medicine
DX: E11.65 Type 2 diabetes mellitus with hyperglycemia (principal); E78.2 Mixed hyperlipidemia; I10 Essential (primary) hypertension
CPT/HCPCS: 36415; 80048; 80061; 82043; 82570; 83036